=== PATIENT | male | born 1955 | race Caucasian/White ===

== ENCOUNTER → 2017-04-03 | Outpatient (CLI) | payer OTHER ==
[~2017-04-03] MED LIST: CELE-1 PO; CLOB15CR22 TP; IBUP200C74 PO; MELO-149 PO; MELO-207 PO; MULT-865 PO; NICO2LOZ
--- NOTE | 2017-04-03 17:18 | RADIOLOGY IMAGING REPORT ---
FACILITY: [facility] PATIENT NAME: Rob Lawton : 1955 MR: [id number] V: [id number] EXAM DATE: ORDERING PHYSICIAN: PALMIRA BUTCHER TECHNOLOGIST: [place] [facility] [place] : 1955 Visit/Account:[id number] Date of Sevice: 04/03/2017 Exam type: THORACIC SPINE 2 VIEW History: Upper back pain Comparison: None. Findings: There are moderate spondylotic changes seen throughout the thoracic spine. No evidence of acute frac ture or subluxation. 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 IMPRESSION: 1. 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 If symptoms persist MR may be helpful Report Dictated By: Chica Disla MD at 04/03/2017 5:13 PM Report E-Signed By: Chica Disla MD at 04/03/2017 5:15 PM WSN:[email or web address]
== END ==
LOC: RAD 15:30
PROVIDERS: ATTEND Internal Medicine
DX: M47.894 Other spondylosis, thoracic region (principal); M19.90 Unspecified osteoarthritis, unspecified site; E78.5 Hyperlipidemia, unspecified; R35.1 Nocturia
CPT/HCPCS: 72070

== ENCOUNTER → 2017-04-04 | Outpatient (CLI) | payer OTHER ==
[2017-04-04 08:14] LABS: PLATELET COUNT, AUTOMATED 244 K/uL (150-450)
[2017-04-04 08:39] LABS: LDL CHOLESTEROL 60 mg/dl
== END ==
LOC: LAB 07:49
PROVIDERS: ATTEND Internal Medicine
DX: Z12.5 Encounter for screening for malignant neoplasm of prostate (principal); D64.9 Anemia, unspecified; M54.9 Dorsalgia, unspecified; E78.5 Hyperlipidemia, unspecified; R35.1 Nocturia; N18.3 Chronic kidney disease, stage 3 (moderate); E11.3293 Type 2 diabetes mellitus with mild nonproliferative diabetic retinopathy without macular edema, bilateral; M19.90 Unspecified osteoarthritis, unspecified site
CPT/HCPCS: 36415; 81001; 82040; 82247; 82310; 82374; 82435; 82465; 82565; 82947; 83036; 83718; 84075; 84132; 84153; 84155; 84295; 84443; 84450; 84460; 84478; 84520; 84550; 85025

== ENCOUNTER 2017-04-24 09:45 | Outpatient (RCR) | payer OTHER ==
--- NOTE | 2017-04-06 10:35 | PT INITIAL EVALUATION ---
MEDICAL DIAGNOSIS: back pain, osteoarthritis TREATMENT DIAGNOSIS: same, neck pain DATE OF ONSET: 03/19/15 SUBJECTIVE: Rob Lawton presents to physical therapy with complaints of neck pain associated with L posterior shoulder pain near superior medial border of the scapulae. He reports that the pain started approximately 2-3 years ago and has stayed about the same. He reports that the pain started for no apparent reason. He rates his current pain to be 4-5/10. He reports the pain to be constant. He reports that he cannot determine if certain movements make him better or worse. However, he does reports that last summer he was required to move his 800 pound [place] up the hill and after doing that motion he felt for the first time his neck pain and L shoulder pain was alleviated and was able to sleep well that night, however, it required the next day to the same level. REHAB PROBLEM LIST: Increased Pain Decreased ROM Decreased Strength Decreased Endurance Decreased Function Decreased ADL's Decreased Mobility PREVIOUS MEDICAL HISTORY: See EMR OCCUPATION: Retired OBJECTIVE: Posture: He demonstrated minimal forward head, B rounded shoulder, increased thoracic kyphosis, and decreased lumbar lordosis ROM: Cervical AROM: extension: moderate restriction end range stretch, flexion full with stretch end feel, R and L sidebending: minimal restriction with stretch end feel, R rotation: minimal restriction with stretch end feel. L rotation: moderate restriction with stretch end feel. Palpation: TTP: superior-medial scapulae into C6-7 down into upper trap Special Tests: Repeated cervical retraction: pain during the motion and better following the test with cervical AROM. Mobility: Independent Gait: Normal gait mechanics ASSESSMENT: Rob will benefit from skilled physical therapy to address the listed impairments to improve function and QOL. Based on the examination, he demonstrated directional preference with cervical pain along with centralized pain. Based on the directional preference and centralized pain, his prognosis is excellent. Short Term Goals 2 weeks: Pt will demonstrate centralized cervical pain to improve function and QOL. 4 weeks: Pt will demonstrate abolished cervical pain and return to prior level of function. 6 weeks: Pt will demonstrate full cervical AROM along with improved work conditioning and improved body mechanics to reduce possibility of reoccurrences. Patient's Goals reduce pain, improve function, and learn better body mechanics PLAN: Patient to be seen for Manual Therapy/STM/MET Strengthening/condition Range of Motion Spinal Stabilization Work Hardening/Cond Stretching Neuromuscular Re-ed Closed Chain Program Posture/Body mechanics Home Exercise Program Therapeutic Activities 2x/week for 6 Weeks If you have any questions, comments, or concerns about this report or plan, please contact me at . Thank you, Rao Castillo, PT, DPT LANAD
--- NOTE | 2017-04-24 16:40 | PT PLAN OF CARE ---
Physician: Broderick Sim MD Patient is being seen: 1-2x/week Therapist: Rao Castillo, PT, DPT Medical Diagnosis: back pain, osteoarthritis Treatment Diagnosis: same, neck pain Date of Onset: 03/19/15 Date of Initial Evaluation: 04/05/17 Date patient was last seen: 04/24/17 Number of treatments: 5 Number of cancellations/No shows: 0 INTERVENTIONS: Patient to be seen for Manual Therapy/STM/MET Strengthening/condition Range of Motion Spinal Stabilization Work Hardening/Cond Stretching Neuromuscular Re-ed Closed Chain Program Posture/Body mechanics Home Exercise Program Therapeutic Activities Short Term Goals 2 weeks: Pt will demonstrate centralized cervical pain to improve function and QOL.MET 4 weeks: Pt will demonstrate abolished cervical pain and return to prior level of function. MET 6 weeks: Pt will demonstrate full cervical AROM along with improved work conditioning and improved body mechanics to reduce possibility of reoccurrences. MET Patient's Goals reduce pain, improve function, and learn better body mechanics Status of Patient's Goals: MET Patient Compliance: Excellent Prognosis: Reasons for continuing therapy: This is a discharge note for Rob Lawton. He reports that he is doing really well. He states that he is sleeping well. He reports that he is feeling better than he has felt in years. He denies any cervical neck pain. He states that he was able to go on his trip without any problems. He reports that he feels like he is 80-90 percent of his normal function. He reports that he is independent on the exercise and continues to utilize/perform as prescribed. Rob has progressed well within PT with increased cervical AROM in all directions with a return to normal end feels in all directions and abolished cervical neck pain along with abolished radiating pain. He was educated on how to prevent reoccurrences and what to do if a reoccurrence does occur. He has met all of his goals. He is independent on his specific exercise. As a result, he will be discharged from formal PT to [facility]. OBJECTIVE: Posture: He demonstrated minimal forward head, B rounded shoulder, increased thoracic kyphosis, and decreased lumbar lordosis ROM: Cervical AROM: extension: NIL normal end range, flexion full with stretch end feel, R and L sidebending: NIL with stretch end feel, R rotation: NIL with stretch end feel. L rotation: NIL with stretch end feel. Palpation: He is no longer TTP. Mobility: Independent Gait: Normal gait mechanics If you have any questions, comments, or concerns about this report or plan, please contact me at . Thank you, Rao Castillo PT, DPT FE
== END 2017-04-24 18:00 | disposition home or self-care (01) ==
LOC: PT 09:45
PROVIDERS: ATTEND Internal Medicine
DX: M54.9 Dorsalgia, unspecified (principal); M19.90 Unspecified osteoarthritis, unspecified site; M25.512 Pain in left shoulder
CPT/HCPCS: 97162

== ENCOUNTER → 2018-09-20 | Outpatient (CLI) | payer OTHER ==
[~2018-09-20] MED LIST changes: +ASPI-1471 PO; +TERB250T74 PO; +VAR05PT PO; +VARE1TAB3 PO
[2018-09-20 08:17] LABS: PLATELET COUNT, AUTOMATED 242 K/uL (150-450)
[2018-09-20 09:41] LABS: LDL CHOLESTEROL 70 mg/dl
== END ==
LOC: LAB 07:39
PROVIDERS: ATTEND Internal Medicine
DX: Z00.00 Encounter for general adult medical examination without abnormal findings (principal); R03.0 Elevated blood-pressure reading, without diagnosis of hypertension; M19.90 Unspecified osteoarthritis, unspecified site; R73.9 Hyperglycemia, unspecified
CPT/HCPCS: 36415; 81001; 82040; 82247; 82310; 82374; 82435; 82465; 82565; 82947; 83718; 84075; 84132; 84153; 84155; 84295; 84443; 84450; 84460; 84478; 84520; 85025